=== PATIENT | female | born 1960 | race American Indian/Alaskan Native ===

== ENCOUNTER 2019-04-18 11:01 | Emergency (ER) | payer OTHER ==
[2019-04-18] MEDS ORDERED: DECADRON IV ONE (11:09)
[2019-04-18] MEDS ORDERED: PROVENTIL IH ONE ×3 (11:09→14:03)
[2019-04-18] MEDS ORDERED: ATROVENT IH ONE (11:09)
--- NOTE | 2019-04-18 11:09 | Event Note ---
ED Screening Note ED Screening Note: SOB/wheezing x 1 week ran out of inhaler three days ago dry cough PMHx HTN no allergies to meds This initial assessment/diagnostic orders/clinical plan/treatment(s) is/are subject to change based on patients health status, clinical progression and re- assessment by fellow clinical providers in the ED. Further treatment and workup at subsequent clinical providers discretion. Patient/guardian urged not to elope from the ED as their condition may be serious if not clinically assessed and managed. Initial orders include: CXR, neb, steroids
[2019-04-18] MEDS ORDERED: SOLU-Medrol IV ONE (11:21)
[2019-04-18] MEDS ORDERED: APRESOLINE IV ONE (11:22)
--- NOTE | 2019-04-18 11:29 | Emergency Department Report ---
HPI - General Chief Complaint: Dyspnea/Respdistress Time Seen by Provider: 04/18/19 11:08 - HPI HPI: 59-year-old female presents to the emergency department with complaint of shortness of breath, wheezing, coughing has been going on for the past few days and getting progressively worse. The patient also presents with extremely elevated blood pressure. She has a history of both asthma and hypertension but has not been on any of her medications since she moved here, from [facility], to be with her . Therefore she does not have any local primary care physician. She denies any tobacco or illicit drug use. She denies any chest pain, fever or lower extremity swelling. She has not taken anything for her symptoms prior to arrival today. ED Past Medical Hx - Past Medical History Previous Medical History?: Yes Hx Hypertension: Yes Hx Asthma: Yes - Surgical History Past Surgical History?: No - Social History Smoking Status: Never Smoker Substance Use Type: None - Medications Home Medications: Home Medications Medication Instructions Recorded Confirmed Last Taken Type ALBUTEROL Inhaler (OR & NICU) 2 puff IH QID PRN #1 inhalation 04/18/19 Unknown Rx [ProAir HFA Inhaler] Azithromycin [Zithromax Z-JULIANNA] 250 mg PO DAILY #6 tab 04/18/19 Unknown Rx amLODIPine [Norvasc] 10 mg PO DAILY #30 tab 04/18/19 Unknown Rx predniSONE [Deltasone] 20 mg PO BID #6 tab 04/18/19 Unknown Rx ED Review of Systems ROS: Stated complaint: ASTHMA Other details as noted in HPI Comment: All other systems reviewed and negative Constitutional: denies: chills, fever Eyes: denies: eye pain, vision change ENT: denies: ear pain, throat pain Respiratory: cough, shortness of breath, wheezing Cardiovascular: denies: chest pain, palpitations, edema Gastrointestinal: denies: abdominal pain, vomiting Genitourinary: denies: dysuria, frequency Musculoskeletal: denies: back pain, arthralgia Skin: denies: rash, lesions Neurological: denies: headache, weakness Physical Exam - Physical Exam Vital Signs: Vital Signs 04/18/19 11:08 Temperature 99.2 F Pulse Rate 64 Respiratory 26 H Rate Blood Pressure 224/104 O2 Sat by Pulse 92 Oximetry Physical Exam: GENERAL: The patient is well-developed well-nourished. HENT: Normocephalic. Atraumatic. Patient has moist mucous membranes. EYES: Extraocular motions are intact. Pupils equal reactive to light bilaterally. NECK: Supple. Trachea is midline. CHEST/LUNGS: Moderate to severe wheezing to the chest. There is some tachypnea and accessory muscle use. There is respiratory distress noted. HEART/CARDIOVASCULAR: Regular. There is mild tachycardia. There is no murmur. ABDOMEN: Abdomen is soft, nontender. Patient has normal bowel sounds. There is no abdominal distention. SKIN: Skin is warm and dry. NEURO: The patient is awake, alert, and cooperative. The patient has no focal neurologic deficits. The patient has normal speech. MUSCULOSKELETAL: There is no tenderness or deformity. There is no evidence of acute injury. ED Course Vital Signs 04/18/19 11:08 Temperature 99.2 F Pulse Rate 64 Respiratory 26 H Rate Blood Pressure 224/104 O2 Sat by Pulse 92 Oximetry ED Medical Decision Making - Lab Data Result diagrams: 04/18/19 11:48 04/18/19 11:48 - Radiology Data Radiology results: report reviewed CHEST 1 VIEW INDICATION / CLINICAL INFORMATION: SOB. COMPARISON: None available. FINDINGS: SUPPORT DEVICES: None. HEART / MEDIASTINUM: No significant abnormality. LUNGS / PLEURA: There is airspace consolidation in the right lung base which could represent atelectasis or pneumonia.. No pneumothorax. ADDITIONAL FINDINGS: No significant additional findings. IMPRESSION: 1. There is right basilar airspace consolidation characteristic of atelectasis or pneumonia. - Medical Decision Making This patient presents to the emergency department with a few days of progressively worsening shortness of breath and wheezing. She also presents with extremely elevated blood pressure and she has been out of all or any of her medications since moving here from [facility] a few months ago. On initial examination, the patient does have some signs of respiratory distress with moderate to severe wheezing, some tachypnea and accessory muscle use. She was placed on a prolonged breathing treatment with 10 mg of albuterol and 1 mg of Atrovent. Upon reevaluation, after completion of this treatment, the patient is greatly improved and no longer appears in any acute distress. She was given a 10 mg dose of hydralazine and her blood pressure came down to a much more reasonable level. Patient's labs have been unremarkable including CBC, met abolic panel, and troponin. A chest x-ray was done that was read by radiology as some right-sided basilar airspace disease. Patient was placed on antibiotics. Her blood pressure has remained stable after the initial dose of antihypertensive medication. She is afebrile. There is no leukocytosis. The patient is feeling greatly improved. She was seen ambulatory in the emergency department and both appears and feels stable and there was no return of increased work of breathing or hypoxia. We will try and treat the patient in the outpatient setting. She has been given multiple referrals for primary care. She will be discharged home on albuterol, azithromycin, prednisone. She will return to the ER with any worsening of her symptoms or any acute distress. - Differential Diagnosis asthma, COPD, pneumonia, CHF Critical Care Time: No Critical care attestation.: If time is entered above; I have spent that time in minutes in the direct care of this critically ill patient, excluding procedure time. ED Disposition Clinical Impression: Asthma exacerbation Qualifiers: Asthma severity: unspecified severity Asthma persistence: unspecified Qualified Code(s): J45.901 - Unspecified asthma with (acute) exacerbation Pneumonia Qualifiers: Pneumonia type: due to unspecified organism Laterality: unspecified laterality Lung location: unspecified part of lung Qualified Code(s): J18.9 - Pneumonia, unspecified organism Hypertension Qualifiers: Hypertension type: essential hypertension Qualified Code(s): I10 - Essential (primary) hypertension Disposition: DC-01 TO HOME OR SELFCARE Is pt being admited?: No Condition: Stable Instructions: Asthma (ED), Community-acquired Pneumonia (ED), Hypertension (ED) Additional Instructions: Please follow up with a primary care physician in the next few days. Return to the emergency Department with any worsening of your symptoms or any acute distress. I am starting you on a blood pressure medication called Norvasc/amlodipine. This medication is taken once daily, usually in the morning. Try and stay away from foods that are high in salt and caffeinated products to help with your blood pressure. Keep a blood pressure log. Prescriptions: predniSONE [Deltasone] 20 mg PO BID #6 tab amLODIPine [Norvasc] 10 mg PO DAILY #30 tab ALBUTEROL Inhaler (OR & NICU) [ProAir HFA Inhaler] 2 puff IH QID PRN #1 inhalation PRN Reason: Shortness Of Breath Azithromycin [Zithromax Z-JULIANNA] 250 mg PO DAILY #6 tab Referrals: REINIER CONTRERAS MD [Staff Physician] - 3-5 Days SANDRO VELA MD [Staff Physician] - 3-5 Days ELVIN CALVIN MD [Staff Physician] - 3-5 Days [facility] [Outside] - 3-5 Days Time of Disposition: 15:32
--- NOTE | 2019-04-18 12:11 | XRay Report ---
. CHEST 1 VIEW INDICATION / CLINICAL INFORMATION: SOB. COMPARISON: None available. FINDINGS: SUPPORT DEVICES: None. HEART / MEDIASTINUM: No significant abnormality. LUNGS / PLEURA: There is airspace consolidation in the right lung base which could represent atelecta sis or pneumonia.. No pneumothorax. ADDITIONAL FINDINGS: No significant additional findings. IMPRESSION: 1. There is right basilar airspace consolidation characteristic of atelectasis or pneumonia. Signer Name: Lawrence Kwon MD Signed: 04/18/2019 12:07 PM Workstation Name: [id number]
[2019-04-18] MEDS ORDERED: ROCEPHIN/NS 1 GM/50 ML 1 GM/50 ML BAG IV ONE (12:35)
[2019-04-18 12:36] LABS: BUN/Creatinine Ratio 12; Blood Urea Nitrogen 7 mg/dL (7-17); Calcium 9.4 mg/dL (8.4-10.2); Hemolysis Index 21
[2019-04-18 12:38] LABS: Basophils % (Auto) 0.7 % (0.0-1.8); Eosinophils # (Auto) 0.2 K/mm3 (0.0-0.4); Eosinophils % (Auto) 2.1 % (0.0-4.3); Hematocrit 42.7 % (30.3-42.9); Lymphocytes # (Auto) 2.7 K/mm3 (1.2-5.4); Lymphocytes % (Auto) 36.2 % (13.4-35.0); Mean Corpuscular HGB Conc 33 % (30-34); Mean Corpuscular Volume 85 fl (79-97); Monocytes # (Auto) 0.6 K/mm3 (0.0-0.8); Monocytes % (Auto) 7.7 % (0.0-7.3); Platelet Count 247 K/mm3 (140-440); Red Blood Count 5.05 M/mm3 (3.65-5.03); Red Cell Distribution Width 14.9 % (13.2-15.2)
[2019-04-18] MEDS ORDERED: ZITHROMAX 500 MG in NACL 0.9% 250ML 250 ML IV ONE (13:00)
[2019-04-18 15:31] VITALS: BP 134/81
== END 2019-04-18 16:48 | disposition home or self-care (01) ==
LOC: ED 11:01
DX: J18.9 Pneumonia, unspecified organism (principal); J45.901 Unspecified asthma with (acute) exacerbation; I10 Essential (primary) hypertension
CPT/HCPCS: 36415; 71045; 80048; 84484; 85025; 94640; 96365; 96368; 96375; 99284; J0360; J0456; J0696; J2930; J7050

== ENCOUNTER 2019-05-20 20:16 | Emergency (ER) | payer OTHER ==
[2019-05-20 20:25] VITALS: BP 147/82
--- NOTE | 2019-05-20 20:33 | Emergency Department Report ---
Chief Complaint: Medical Clearance Stated Complaint: ASTHMA Time Seen by Provider: 05/20/19 20:28 - HPI History of Present Illness: This is a 59-year-old female that presents to the emergency room for refills of asthma and blood pressure medication. PMH of asthma and HTN Currently taking amlodipine 10 mg po daily and albuterol inhaler. Denies chest pain, shortness of breath, palpitations, nausea, vomiting, fever, cough, or visual changes. - Exam Vital Signs: Vital Signs 05/20/19 20:22 Temperature 98.6 F Pulse Rate 65 Respiratory 20 Rate Blood Pressure 147/82 O2 Sat by Pulse 95 Oximetry Physical Exam: GENERAL APPEARANCE: The patient is a 59-year-old well-developed, well-nourished female in no acute distress. CHEST: Symmetric. Nontender to palpation. LUNGS: Breath sounds are equal and clear bilaterally. No wheezes, rhonchi, or rales. HEART: Regular rate and rhythm with normal S1 and S2. No murmurs, gallops, or rubs. ABDOMEN: Soft, flat, and benign. No mass, tenderness, guarding, or rebound. No organomegaly or hernia. Bowel sounds are present. No CVA tenderness or flank mass. MUSCULOSKELETAL: Negative spinal tenderness. Gait is coordinated and smooth. EXTREMITIES: No cyanosis, clubbing, or edema. PSYCHIATRIC: The patient is awake, alert, and oriented x3. Recent and remote memory is intact. Appropriate mood and affect. SKIN: Warm, dry, and well perfused. Good turgor. No lesions, nodules or rashes are noted. No onychomycosis. MSE screening note: Focused history and physical exam performed. Due to findings the following was ordered: ED Medical Decision Making - Medical Decision Making Patient is stable and was examined by me. No acute signs of distress noted. Refilled amlodipine and albuterol inhaler. Given list of primary care doctors for follow up and further refills. Patient and spouse agree to discharge treatment plan of care. No further questions noted by the parent. Patient discharged home stable. ED Disposition for MSE Clinical Impression: Encounter for medication refill Disposition: DC-01 TO HOME OR SELFCARE Is pt being admited?: No Does the pt Need Aspirin: No Condition: Stable Instructions: Hypertension (ED), Asthma (ED) Additional Instructions: Follow up with a primary care doctor from the referrals list below. Prescriptions: amLODIPine [Norvasc] 10 mg PO DAILY #30 tab ALBUTEROL Inhaler (OR & NICU) [ProAir HFA Inhaler] 2 puff IH QID PRN #1 inhalation PRN Reason: Shortness Of Breath Referrals: [facility] [place] 2[place] [Outside] - 3-5 Days [facility] [Outside] - 3-5 Days [facility] [Outside] - 3-5 Days Time of Disposition: 20:36
== END 2019-05-20 21:00 | disposition home or self-care (01) ==
LOC: ED 20:16
DX: I10 Essential (primary) hypertension (principal); J45.909 Unspecified asthma, uncomplicated; Z76.0 Encounter for issue of repeat prescription
CPT/HCPCS: 99282

== ENCOUNTER 2019-06-16 20:51 | Emergency (ER) | payer OTHER ==
[2019-06-17] MEDS ORDERED: DELTASONE PO ONE (01:55)
[2019-06-17] MEDS ORDERED: DUONEB *Not for PRN Use IH ONE (01:55)
[2019-06-17 02:53] VITALS: BP 148/82
--- NOTE | 2019-06-17 03:34 | Emergency Department Report ---
ED General Adult HPI - General Chief complaint: Medical Clearance Stated complaint: MED REFILL Source: patient Mode of arrival: Ambulatory Limitations: No Limitations - History of Present Illness Initial comments: Patient is 59-year-old -Citizen Of [place] female with a history of hypertension and asthma who presents to the ED with acute onset of persistent dry cough with wheezing for the last 2 days. Patient states that she ran out of her albuterol inhaler and would like a refill of the same. Patient denies dizziness, fever, chills, nausea, vomiting, chest pain, abdominal pain, diaphoresis, headache, sore throat, nasal and sinus congestion or change in vision or syncope. MD Complaint: refill of albuterol inhaler, wheezing, dry cough -: Sudden, days(s) (2) Location: chest Radiation: non-radiation Severity scale (0 -10): 0 Quality: dull Consistency: intermittent Improves with: none Worsens with: none Associated Symptoms: denies other symptoms, cough, shortness of breath. denies: confusion, chest pain, diaphoresis, fever/chills, headaches, loss of appetite, malaise, nausea/vomiting, rash, seizure, syncope, weakness Treatments Prior to Arrival: none - Related Data Previous Rx's Medication Instructions Recorded Last Taken Type ALBUTEROL Inhaler (OR & NICU) 2 puff IH QID PRN #1 inhalation 04/18/19 Unknown Rx [ProAir HFA Inhaler] amLODIPine [Norvasc] 10 mg PO DAILY #30 tab 04/18/19 Unknown Rx ALBUTEROL Inhaler (OR & NICU) 2 puff IH QID PRN #1 inhalation 06/17/19 Unknown Rx [ProAir HFA Inhaler] amLODIPine [Norvasc] 10 mg PO DAILY #30 tab 06/17/19 Unknown Rx Allergies Allergy/AdvReac Type Severity Reaction Status Date / Time No Known Allergies Allergy Verified 04/18/19 12:44 ED Review of Systems ROS: Stated complaint: MED REFILL Other details as noted in HPI Constitutional: denies: chills, fever Eyes: denies: eye pain, eye discharge, vision change ENT: congestion. denies: ear pain, throat pain Respiratory: cough, shortness of breath, wheezing Cardiovascular: denies: chest pain, palpitations, dyspnea on exertion, orthopnea, edema, syncope, paroxysmal nocturnal dyspnea Endocrine: no symptoms reported Gastrointestinal: denies: abdominal pain, nausea, diarrhea Genitourinary: denies: urgency, dysuria, discharge Musculoskeletal: denies: back pain, joint swelling, arthralgia Skin: denies: rash, lesions Neurological: denies: headache, weakness, paresthesias Psychiatric: denies: anxiety, depression Hematological/Lymphatic: denies: easy bleeding, easy bruising ED Past Medical Hx - Past Medical History Previous Medical History?: Yes Hx Hypertension: Yes Hx Asthma: Yes - Surgical History Past Surgical History?: Yes - Social History Smoking Status: Never Smoker Substance Use Type: None - Medications Home Medications: Home Medications Medication Instructions Recorded Confirmed Last Taken Type ALBUTEROL Inhaler (OR & NICU) 2 puff IH QID PRN #1 inhalation 04/18/19 05/20/19 Unknown Rx [ProAir HFA Inhaler] amLODIPine [Norvasc] 10 mg PO DAILY #30 tab 04/18/19 05/20/19 Unknown Rx ALBUTEROL Inhaler (OR & NICU) 2 puff IH QID PRN #1 inhalation 06/17/19 Unknown Rx [ProAir HFA Inhaler] amLODIPine [Norvasc] 10 mg PO DAILY #30 tab 06/17/19 Unknown Rx ED Physical Exam - General Limitations: No Limitations General appearance: alert, in no apparent distress - Head Head exam: Present: atraumatic, normocephalic, normal inspection - Eye Eye exam: Present: normal appearance, PERRL, EOMI Pupils: Present: normal accommodation - ENT ENT exam: Present: normal exam, normal orophraynx, mucous membranes moist, TM's normal bilaterally, normal external ear exam - Neck Neck exam: Present: normal inspection, full ROM - Respiratory Respiratory exam: Present: wheezes (mildly diffuse coarse wheezes throughout). Absent: respiratory distress, rhonchi, stridor, chest wall tenderness, accessory muscle use, decreased breath sounds - Cardiovascular Cardiovascular Exam: Present: regular rate, normal rhythm, normal heart sounds. Absent: systolic murmur, diastolic murmur, rubs, gallop - GI/Abdominal GI/Abdominal exam: Present: soft, normal bowel sounds. Absent: tenderness, rebound, hyperactive bowel sounds, hypoactive bowel sounds, organomegaly, mass - Extremities Exam Extremities exam: Present: normal inspection - Back Exam Back exam: Present: normal inspection - Neurological Exam Neurological exam: Present: alert, oriented X3 - Psychiatric Psychiatric exam: Present: normal affect, normal mood - Skin Skin exam: Present: warm, dry, intact, normal color. Absent: rash ED Course Vital Signs 06/16/19 06/17/19 22:27 02:52 Temperature 99 F 98.3 F Pulse Rate 65 66 Respiratory 16 16 Rate Blood Pressure 156/88 Blood Pressure 148/82 [Left] O2 Sat by Pulse 98 100 Oximetry - Reevaluation(s) Reevaluation #1: 06/17/19 03:32 This is a 59-year-old female with a history of asthma and hypertension who presented to the ED for a refill of her albuterol inhaler after she ran out of her inhaler 2 days ago. In the ED, patient is alert and oriented 3 and is not in distress. Patient received DuoNeb treatment in the ED with oral prednisone. On reevaluation, patient's wheezing resolved and patient was discharged home with a new prescription of albuterol inhaler and advised follow-up at [facility] coming to clinic to establish care or return to the ED immediately if symptoms get worse. ED Medical Decision Making - Medical Decision Making inhaler 2 days ago. In the ED, patient is alert and oriented 3 and is not in distress. Patient received DuoNeb treatment in the ED with oral prednisone. On reevaluation, patient's wheezing resolved and patient was discharged home with a new prescription of albuterol inhaler and advised follow-up at [facility] coming to clinic to establish care or return to the ED immediately if symptoms get worse. - Differential Diagnosis acute asthmatic bronchitis; medication refills Critical care attestation.: If time is entered above; I have spent that time in minutes in the direct care of this critically ill patient, excluding procedure time. ED Disposition Clinical Impression: Acute asthmatic bronchitis, Medication refill Disposition: DC-01 TO HOME OR SELFCARE Is pt being admited?: No Does the pt Need Aspirin: No Condition: Stable Instructions: Acute Bronchitis (ED), Dyspnea (ED) Additional Instructions: Take medications and follow up with the [facility] clinic to establish care. Return to the ED immediately if symptoms get worse. Prescriptions: amLODIPine [Norvasc] 10 mg PO DAILY #30 tab ALBUTEROL Inhaler (OR & NICU) [ProAir HFA Inhaler] 2 puff IH QID PRN #1 inhalation PRN Reason: Shortness Of Breath Referrals: [facility] [Outside] - 3-5 Days Time of Disposition: 03:35 Print Language: CZECH
== END 2019-06-17 03:47 | disposition home or self-care (01) ==
LOC: ED 20:51
DX: J45.909 Unspecified asthma, uncomplicated (principal); I10 Essential (primary) hypertension
CPT/HCPCS: 99283; J7512